=== PATIENT | male | born 1950 | race Caucasian/White ===

== ENCOUNTER 2020-06-17 18:26 | Emergency (ER) | payer MEDICARE, OTHER ==
[~2020-06-17] VITALS: Ht 172.7 cm; Wt 81.8 kg
[~2020-06-17 18:26] MED LIST: ASPI325T11 PO; ASPI81TA50 PO; ATOR20TA58 PO; B12/1TAB3 PO; HYDR-2145 PO; PANT20TA2 PO
[2020-06-17] MEDS ORDERED: OXYMETAZOLINE 0.05% NASAL SPRAY 30ML BOTTLE. NS ONE (19:00)
[2020-06-17] MEDS ORDERED: TRANEXAMIC ACID 1,000 MG/10 ML VIAL. TOP ONE (21:15)
--- NOTE | 2020-06-17 23:30 | PHYS DOC ---
Past Medical History Past Medical History: Hypertension, Unknown Past Surgical History: Tonsillectomy, Other Additional Past Surgical Histo: prostate, Deviated septum repair with turbinate resection may 2020 Smoking Status: Never Smoker Alcohol Use: Occasionally Drug Use: None General Adult EDM: Chief Complaint: NOSEBLEED HPI: HPI: Patient is a 69 year old male who presents to the ED via passenger vehicle with Nosebleed of 1 hour duration. Patient underwent outpatient surgery, deviated septum repair with turbinate removal, at [address] Martin Coronel (ENT). Patient reports nose was bleeding in PACU but was controlled with pressure. Patient was discharged from [facility] with instruction to return or go to ED if bleeding resumed. Patient reports that bleeding started again suddenly and aggressively around 1700 at which point he decided to present to ED. Patient is not on blood thinners. Patient pain is well controlled at this time. Review of Systems: Review of Systems: Constitutional: Denies fever or chills Eyes: Denies redness or eye pain HENT: Patient has obvious bright red blood draining from both nares (R>L). Patient has nasal congestion s/p recent septum surgery. Respiratory: Denies cough or shortness of breath Cardiovascular: Denies chest pain or palpitations GI: Denies abdominal pain, nausea, or vomiting : Denies dysuria or hematuria Musculoskeletal: Patient has low back and hamstring pain. Denies joint pain. Integument: Denies rash or skin lesions Neurologic: Denies headache, focal weakness or sensory changes Complete systems were reviewed and found to be within normal limits, except as documented in this note. Heart Score: C/O Chest Pain: N/A Family History: Family History: Patient has no pertinent family history. Current Medications: Current Medications Medications (Trade) Dose Ordered Sig/Brooks Start Time Stop Time Status Last Admin Dose Admin Oxymetazoline HCl (Afrin) 2 spray 1X ONCE 06/17/20 19:00 06/17/20 19:01 DC 06/17/20 20:52 2 SPRAY Tranexamic Acid (Cyklokapron) 1,000 mg 1X ONCE 06/17/20 21:15 06/17/20 21:16 DC Allergies: Allergies: Allergies Coded Allergies Type Severity Reaction Last Updated Verified No Known Drug Allergies 08/19/17 No Physical Exam: PE: Constitutional: Well developed, well nourished, no acute distress, non-toxic appearance HENT: Bright red bleeding from nares (R>L). Patient presents with packing soaked in coagulated blood. Blood was suctioned and nose was inspected. No arterial bleed was directly visualized. Patient reports surgeon placed stents bilaterally in nose during surgery. Eyes: PERRL, EOMI, conjunctiva normal, bloody discharge noted bilaterally. Neck: Normal range of motion, no tenderness, supple Lungs & Thorax: No respiratory distress, equal chest rise and fall Abdomen: Soft, no tenderness Skin: Warm, dry, no erythema, no rash Back: No tenderness, no CVA tenderness Extremities: No tenderness, ROM intact, no edema Neurologic: Alert and oriented X 3, normal motor function, normal sensory function, no focal deficits noted Psychologic: Affect normal, judgment normal Current Patient Data: Vital Signs: Vital Signs Date Time Temp Pulse Resp B/P (MAP) Pulse Ox O2 Delivery O2 Flow Rate FiO2 06/17/20 19:35 98.3 78 122/81 (95) 95 Room Air 98.3 EKG: EKG: [] Radiology/Procedures: Radiology/Procedures: [] Course & Med Decision Making: Course & Med Decision Making Patient is a 69 year old male who presents to the ED via passenger vehicle with Nosebleed of 1 hour duration. Patient underwent outpatient surgery, deviated septum repair with turbinate removal, at [address] Martin Coronel (ENT). Patient reports nose was bleeding in PACU but was controlled with pressure. Patient was discharged from [facility] with instruction to return or to seek care in ED if bleeding resumed. Patient reports that bleeding started again suddenly and aggressively around 1700 at which point he decided to present to ED. Patient is not on blood thinners. Patient pain is well controlled at this time. Blood soaked gauze was removed and clots in nares bilaterally were suctioned. Nares were inspected and bleed was identified in Right nare. Nasal epistaxis was achieved after failed trial of Afrin followed by success with administration of TXA (see procedure note). Estimated blood loss during ED visit 400 mL. Labs ordered to rule out need to administer blood products at this time. Patient had vasovagal episode of syncope in the period following successful epistaxis. Patient was observed and monitored to confirm hemodynamic stability. Patient stable for discharge with outpatient follow-up with Dr. Martin Coronel (ENT surgeon). Discussed findings and plan with patient and partner, who acknowledged understanding and agreement. Vanessa Disclaimer: Vanessa Disclaimer: This electronic medical record was generated, in whole or in part, using a voice recognition dictation system. Additional Procedures Progress Epistaxis control Verbal consent obtained. Time out performed. Hand hygiene utilized. Blood clots from bilateral nares (right greater than left) suctioned with Yankauer suction. Afrin sprays x2 followed by direct pressure for 15 minutes performed x3 rounds. Patient with continued active bleeding. Blood clots again suctioned with secondary treatment of TXA with atomizer to bilateral nares with total of 5 mL to each nare which was followed by direct pressure. Bleeding with interval improvement/resolution. Patient tolerated procedure well and without difficulty. Estimated blood loss during entire ED visit 400 mL. Departure Departure Impression: Primary Impression: Postsurgical epistaxis Disposition: 01 [place] HOME SELF CARE/HOMELESS Condition: STABLE Referrals: ROCHELLE CALDERON MD (PCP) Patient Instructions: Nosebleed, [id number] Additional Instructions: Call your ENT in AM for further evaluation. If bleeding returns, remove blood clot as much as possible, 2 sprays of Afrin to each nostril, and then hold pressure for 15 mins. If bleeding continues, repeat step I x 2 rounds as needed. If bleeding continues after 3 rounds of Afrin and holding nose for total of 45mins, then return to ED. May benefit by returning to [place] to be further evaluated by your ENT. ARIS LARSON DO Jun 17, 2020 23:30
[2020-06-17] MEDS ORDERED: IV NORMAL SALINE 1000ML BAG 1,000 ML IV ONE (23:45)
[2020-06-17 23:49] LABS: BASO % 0 % (0-3); EOS % 0 % (0-3); HEMOGLOBIN 12.4 g/dL (13.0-17.5); LYMPH # 1.4 x10^3/uL (1.0-4.8); LYMPH % 11 % (24-48); MEAN CORPUSCULAR HEMOGLOBIN 31 pg (25-35); MEAN CORPUSCULAR HGB CONC 34 g/dL (31-37); MEAN CORPUSCULAR VOLUME 89 fL (79-100); MONO # 1.1 x10^3/uL (0.0-1.1); MONO % 9 % (0-9); NEUT % 80 % (31-73); PLATELET COUNT 204 x10^3/uL (140-400); RED BLOOD COUNT 4.06 x10^6/uL (4.30-5.70); RED CELL DISTRIBUTION WIDTH 13.1 % (11.5-14.5); WHITE BLOOD COUNT 12.5 x10^3/uL (4.0-11.0)
[2020-06-18] MEDS ORDERED: HYDROcodone/APAP 5/325MG 1 TAB TABLET PO ONE (00:15)
[2020-06-18 00:37] VITALS: BP 131/77
== END 2020-06-18 00:55 | disposition home or self-care (01) ==
LOC: ER 18:26
DX: R04.0 Epistaxis (principal); M54.5 Low back pain; I10 Essential (primary) hypertension; Z90.89 Acquired absence of other organs; Z98.890 Other specified postprocedural states
CPT/HCPCS: 36415; 85025; 96360; 99285; J3490; J7030

== ENCOUNTER 2020-09-19 04:00 | Emergency (ER) | payer MEDICARE, OTHER ==
[~2020-09-19] VITALS: Ht 172.7 cm; Wt 81.8 kg
[2020-09-19 06:11] LABS: BASO # 0.1 x10^3/uL (0.0-0.2); BASO % 1 % (0-3); EOS # 0.1 x10^3/uL (0.0-0.7); EOS % 1 % (0-3); HEMATOCRIT 39.8 % (39.0-53.0); HEMOGLOBIN 13.4 g/dL (13.0-17.5); LYMPH % 11 % (24-48); MEAN CORPUSCULAR HEMOGLOBIN 28 pg (25-35); MEAN CORPUSCULAR HGB CONC 34 g/dL (31-37); MEAN CORPUSCULAR VOLUME 84 fL (79-100); MONO # 0.5 x10^3/uL (0.0-1.1); MONO % 6 % (0-9); NEUT % 81 % (31-73); PLATELET COUNT 215 x10^3/uL (140-400); RED BLOOD COUNT 4.75 x10^6/uL (4.30-5.70); RED CELL DISTRIBUTION WIDTH 13.6 % (11.5-14.5); WHITE BLOOD COUNT 8.7 x10^3/uL (4.0-11.0)
[2020-09-19 06:12] LABS: CALCIUM 9.3 mg/dL (8.5-10.1); CREATININE 1.4 mg/dL (0.7-1.3); GFR 50.1; POTASSIUM 3.4 mmol/L (3.5-5.1)
--- NOTE | 2020-09-19 06:14 | EKG ---
[facility] [address] [place] [address] Test Date: 2020-09-19 Test Time: 05:57:52 Pat Name: HAWK DAVIS Department: Room: Gender: M Inspector Quality Assurance: : 1950 Requested By: TIMI MERINO Order Number: [id number] Reading MD: Measurements Intervals [place] Rate: 66 P: 31 NV: 198 QRS: -14 QRSD: 86 T: 58 QT: 420 QTc: 442 Interpretive Statements SINUS RHYTHM LEFTWARD AXIS OTHERWISE NORMAL ECG RI6.02 No previous ECG available for comparison
[2020-09-19 06:17] LABS: ALBUMIN 4.3 g/dL (3.4-5.0); ALBUMIN/GLOBULIN RATIO 1.4 (1.0-1.7); TOTAL BILIRUBIN 0.6 mg/dL (0.2-1.0); TOTAL PROTEIN 7.4 g/dL (6.4-8.2)
[2020-09-19] MEDS ORDERED: IV NORMAL SALINE 1000ML BAG 1,000 ML IV ONE (06:30)
--- NOTE | 2020-09-19 06:33 | PHYS DOC ---
Past Medical History Past Medical History: GERD, Hypertension, Unknown Past Surgical History: Tonsillectomy, Other Additional Past Surgical Histo: prostate, Deviated septum repair with turbinate resection may 2020 Smoking Status: Never Smoker Alcohol Use: Occasionally Drug Use: None General Adult EDM: Chief Complaint: ABDOMINAL PAIN HPI: HPI: 69-year-old male presents with report of epigastric abdominal pain which she reports is dull in nature that started suddenly at approximately 0230 this morning. Patient denies radiation of pain. Denies chest pain. Denies nausea or vomiting. Denies trauma. Denies dysuria or hematuria. Patient reports history of gastritis for which he is on medication. Patient reports taking an additional antiacid without significant improvement of his symptoms. Denies shortness of breath or cough. Denies known sick contacts. Review of Systems: Review of Systems: Constitutional: Denies fever or chills Eyes: Denies redness or eye pain HENT: Denies nasal congestion or sore throat Respiratory: Denies cough or shortness of breath Cardiovascular: Denies chest pain or palpitations GI: Reports epigastric abdominal pain; denies nausea or vomiting : Denies dysuria or hematuria Musculoskeletal: Denies back pain or joint pain Integument: Denies rash or skin lesions Neurologic: Denies headache, focal weakness or sensory changes Complete systems were reviewed and found to be within normal limits, except as documented in this note. Heart Score: C/O Chest Pain: No Allergies: Allergies: Allergies Coded Allergies Type Severity Reaction Last Updated Verified No Known Drug Allergies 08/19/17 No Physical Exam: PE: Constitutional: Well developed, well nourished, no acute distress, non-toxic appearance HENT: Normocephalic, atraumatic Eyes: Conjunctiva normal, no discharge Neck: Normal range of motion, supple Lungs & Thorax: No respiratory distress, equal chest rise and fall Abdomen: Soft, epigastric tenderness, no guarding/rebound tenderness/distention Skin: Warm, dry, no erythema, no rash Back: No tenderness, no CVA tenderness Extremities: No tenderness, ROM intact, no edema Neurologic: Alert and oriented X 3, no focal deficits noted Psychologic: Affect normal, judgment normal Current Patient Data: Labs: Laboratory Tests Test 09/19/20 05:35 White Blood Count 8.7 x10^3/uL (4.0-11.0) Red Blood Count 4.75 x10^6/uL (4.30-5.70) Hemoglobin 13.4 g/dL (13.0-17.5) Hematocrit 39.8 % (39.0-53.0) Mean Corpuscular Volume 84 fL (79-100) Mean Corpuscular Hemoglobin 28 pg (25-35) Mean Corpuscular Hemoglobin Concent 34 g/dL (31-37) Red Cell Distribution Width 13.6 % (11.5-14.5) Platelet Count 215 x10^3/uL (140-400) Neutrophils (%) (Auto) 81 % (31-73) H Lymphocytes (%) (Auto) 11 % (24-48) L Monocytes (%) (Auto) 6 % (0-9) Eosinophils (%) (Auto) 1 % (0-3) Basophils (%) (Auto) 1 % (0-3) Neutrophils # (Auto) 7.0 x10^3/uL (1.8-7.7) Lymphocytes # (Auto) 1.0 x10^3/uL (1.0-4.8) Monocytes # (Auto) 0.5 x10^3/uL (0.0-1.1) Eosinophils # (Auto) 0.1 x10^3/uL (0.0-0.7) Basophils # (Auto) 0.1 x10^3/uL (0.0-0.2) Sodium Level 143 mmol/L (136-145) Potassium Level 3.4 mmol/L (3.5-5.1) L Chloride Level 103 mmol/L (98-107) Carbon Dioxide Level 29 mmol/L (21-32) Anion Gap 11 (6-14) Blood Urea Nitrogen 22 mg/dL (8-26) Creatinine 1.4 mg/dL (0.7-1.3) H Estimated GFR (Cockcroft-Gault) 50.1 BUN/Creatinine Ratio 16 (6-20) Glucose Level 101 mg/dL (70-99) H Calcium Level 9.3 mg/dL (8.5-10.1) Total Bilirubin 0.6 mg/dL (0.2-1.0) Aspartate Amino Transferase (AST) 18 U/L (15-37) Alanine Aminotransferase (ALT) 20 U/L (16-63) Alkaline Phosphatase 60 U/L (46-116) Total Protein 7.4 g/dL (6.4-8.2) Albumin 4.3 g/dL (3.4-5.0) Albumin/Globulin Ratio 1.4 (1.0-1.7) Lipase 54 U/L (73-393) L Laboratory Tests 09/19/20 05:35 Laboratory Tests 09/19/20 05:35 Vital Signs: Vital Signs Date Time Temp Pulse Resp B/P (MAP) Pulse Ox O2 Delivery O2 Flow Rate FiO2 09/19/20 04:04 97.6 57 20 192/93 (126) 96 Room Air 97.6 EKG: EKG: @0557 NSR at 66bpm, NO ST elevation, QRS 86ms, QT/QTc 420/442ms Radiology/Procedures: Radiology/Procedures: PROCEDURE: CT ABD PELV W/ IV CONTRST ONLY EXAMINATION: CT abdomen and pelvis with IV contrast. INDICATION:69 years, Male, abdominal pain. TECHNIQUE: Axial CT images of the abdomen and pelvis were obtained. Coronal and sagittal reformatted performed. COMPARISON: None. Exposure: One or more of the following individualized dose reduction techniques were utilized for this examination: 1. Automated exposure control 2. Adjustment of the mA and/or kV according to patient size 3. Use of iterative reconstruction technique. FINDINGS: LOWER CHEST: 2 mm fissure based nodule in the right middle lobe. Dependent subsegmental atelectasis in bibasilar lungs. ABDOMEN/PELVIS: Normal morphology and size of the liver with homogeneous enhancement. Subc entimeter hypodensities in both hepatic lobes, too small to characterize. Gallbladder hydrops without wall thickening or pericholecystic fat stranding. Tiny calcified cholelithiasis. No biliary ductal dilation. Normal spleen. Mildly atrophic pancreatic parenchyma without ductal dilation. No adrenal nodule. No hydronephrosis or nephrolithiasis in either kidney. Nonspecific bilateral perinephric fat stranding. Distal esophageal wall thickening, may reflect reflux esophagitis. Small hiatal hernia. Stomach is decompressed which limits evaluation. Uncomplicated D2 duodenal diverticulum. No bowel obstruction. Colonic diverticulosis without diverticulitis. Appendix is not seen with certainty. Focal narrowing at the celiac trunk origin, findings can be seen in medial arcuate ligament syndrome. Normal caliber abdominal aorta, demonstrates mild atherosclerotic calcifications. Mesenteric arteries and portal vein are patent. No lymphadenopathy in the abdomen or pelvis by size criteria. No ascites or pneumoperitoneum. Unremarkable urinary bladder and prostate. No suspicious pelvic masses. MUSCULOSKELETAL: Bilateral L5 pars defect with grade 1 anterolisthesis of L5 over S1 and severe degenerative changes. No acute osseous process or suspicious lesion. Small fat- containing umbilical and right inguinal hernias. IMPRESSION: 1. No acute abnormality in the abdomen or pelvis. 2. Gallbladder hydrops with tiny cholelithiasis. No CT evidence of acute cholecystitis. 3. Colonic diverticulosis without diverticulitis. 4. Other chronic/incidental findings, as described above. Electronically signed by: Ariana Mcintosh MD (09/19/2020 7:37 AM) [facility] Course & Med Decision Making: Course & Med Decision Making Pertinent Labs and Imaging studies reviewed. (See chart for details) Patient presents with sudden epigastric abdominal pain upon waking this morning at 0230. Denies chest pain. Denies shortness of air or cough. Patient reports some improvement upon arrival to the ER. Abdomen nonperitoneal. Screening EKG negative. Labs obtained and posted to chart. CT abdomen/pelvis with signs of gallbladder hydrops with cholelithiasis. No acute signs of cholecystitis. Ultrasound also obtained with normal size of common bile duct again with gallbladder hydrops with cholelithiasis and no other acute signs of cholecystitis. Patient stable for discharge with outpatient follow-up with PCP/general surgeon. General surgery referral provided. Discussed findings and plan with patient, who acknowledges understanding and agreement. Vanessa Disclaimer: Vanessa Disclaimer: This electronic medical record was generated, in whole or in part, using a voice recognition dictation system. Departure Departure Impression: Primary Impression: Gallbladder hydrops Additional Impression: Biliary colic Disposition: HOME / SELF CARE / HOMELESS Condition: STABLE Referrals: ROCHELLE CALDERON MD (PCP) JORDON INGRAM MD Patient Instructions: Cholelithiasis, [id number], Fat and Cholesterol Control Diet, [id number] Additional Instructions: Please call and make an appointment to follow with a general surgeon regarding your gallbladder. Maintain a "low fat" diet. Scripts Hydrocodone Bit/Acetaminophen (HYDROCODONE-APAP 5-325 ) 1 Tab Tablet 0.5-1 TAB PO PRN Q6HRS PRN for PAIN, #10 TAB 0 Refills Prov: ARIS LARSON DO 09/19/20 Ondansetron (ONDANSETRON ODT) 4 Mg Tab.rapdis 1 TAB PO PRN Q6-8HRS PRN for NAUSEA, #16 TAB Prov: ARIS LARSON DO 09/19/20 ARIS LARSON DO Sep 19, 2020 06:33
[2020-09-19] MEDS ORDERED: IOHEXOL 300 MG/ML 100ML VIAL. IV ONE (07:00)
[2020-09-19] MEDS ORDERED: CONTRAST GIVEN. MC PRN (07:00)
--- NOTE | 2020-09-19 07:39 | RAD ---
EXAMINATION: CT abdomen and pelvis with IV contrast. INDICATION:69 years, Male, abdominal pain. TECHNIQUE: Axial CT images of the abdomen and pelvis were obtained. Coronal and sagittal reformatted performed. COMPARISON: None. Exposure: One or more of the following individualized dose reduction techniques were utilized for thi s examination: 1. Automated exposure control 2. Adjustment of the mA and/or kV according to patient size 3. Use of iterative reconstruction technique. FINDINGS: LOWER CHEST: 2 mm fissure based nodule in the right middle lobe. Dependent subsegmental atelectasis in bibasilar l ungs. ABDOMEN/PELVIS: Normal morphology and size of the liver with homogeneous enhancement. Subcentimeter hypodensities in both hepatic lobes, too small to characterize. Gallbladder hydrops without wall thickening or pericho lecystic fat stranding. Tiny calcified cholelithiasis. No biliary ductal dilation. Normal spleen. Mil dly atrophic pancreatic parenchyma without ductal dilation. No adrenal nodule. No hydronephrosis or n ephrolithiasis in either kidney. Nonspecific bilateral perinephric fat stranding. Distal esophageal wall thickening, may reflect reflux esophagitis. Small hiatal hernia. Stomach is de compressed which limits evaluation. Uncomplicated D2 duodenal diverticulum. No bowel obstruction. Col onic diverticulosis without diverticulitis. Appendix is not seen with certainty. Focal narrowing at t he celiac trunk origin, findings can be seen in medial arcuate ligament syndrome. Normal caliber abdo alexis aorta, demonstrates mild atherosclerotic calcifications. Mesenteric arteries and portal vein ar e patent. No lymphadenopathy in the abdomen or pelvis by size criteria. No ascites or pneumoperitoneu m. Unremarkable urinary bladder and prostate. No suspicious pelvic masses. MUSCULOSKELETAL: Bilateral L5 pars defect with grade 1 anterolisthesis of L5 over S1 and severe degenerative changes. No acute osseous process or suspicious lesion. Small fat-containing umbilical and right inguinal keira ias. IMPRESSION: 1. No acute abnormality in the abdomen or pelvis. 2. Gallbladder hydrops with tiny cholelithiasis. No CT evidence of acute cholecystitis. 3. Colonic diverticulosis without diverticulitis. 4. Other chronic/incidental findings, as described above. Electronically signed by: Ariana Mcintosh MD (09/19/2020 7:37 AM) [facility]
[2020-09-19 07:53] LABS: BILIRUBIN,URINE NEGATIVE (NEG); CLARITY,URINE CLEAR; COLOR,URINE YELLOW; NITRITE,URINE NEGATIVE (NEG); PH,URINE 5.5 (<5.0-8.0); PROTEIN,URINE NEGATIVE (NEG-TRACE); UROBILINOGEN,URINE 0.2 mg/dL (0.2 mg/dL)
[2020-09-19] MEDS ORDERED: fentaNYL PF VIAL 100 MCG/2 ML VIAL IV ONE (08:30)
[2020-09-19 08:33] LABS: BACTERIA,URINE 0 /HPF (0-FEW); RBC,URINE 0 /HPF (0-2); WBC,URINE 0 /HPF (0-4)
--- NOTE | 2020-09-19 08:45 | RAD ---
EXAMINATION: US ABDOMEN LIMITED INDICATION: 69 years, Male, upper abdominal pain. COMPARISON: Same day CT abdomen and pelvis TECHNIQUE: Grayscale, color Doppler and limited spectral Doppler images of the right upper quadrant w ere obtained. FINDINGS: LIVER: SIZE (LENGTH): 3.9 cm. ECHOGENICITY: Normal PARENCHYMA: Mild heterogeneous echotexture. No discrete focal lesion. INTRAHEPATIC BILE DUCTS: Nondilated. PORTAL VEIN: Patent with normal hepatopedal flow. GALLBLADDER: GALLBLADDER WALL THICKNESS: 2 mm MORPHOLOGY: Gallbladder hydrops. No wall hyperemia or pericholecystic free fluid. LUMEN: Normal. Positive Calix's sign COMMON BILE DUCT DIAMETER: 4 mm RIGHT KIDNEY: MEASURES: 9.1 cm in length MORPHOLOGY/PARENCHYMA: Normal corticomedullary differentiation with no shadowing calculus or discrete masses. COLLECTING SYSTEM: No hydronephrosis. Pancreas, IVC and abdominal aorta are obscured by overlying bowel gas. OTHER: RETROPERITONEUM, INFERIOR VENA CAVA: Normal caliber. AORTA: Normal caliber measures up to Field 2 cm FLUID:No free fluid. IMPRESSION: Gallbladder hydrops without other sonographic evidence of acute cholecystitis. Previously seen tiny c alcified cholelithiasis is appreciated on the current exam. Positive Calix's sign is nonspecific. Co nsider HIDA scan, as warranted. Electronically signed by: Ariana Mcintosh MD (09/19/2020 8:42 AM) [facility]
[2020-09-19 08:50] VITALS: BP 164/82
[2020-09-19] MEDS ORDERED: ONDA4TAB12 PO (09:18)
[2020-09-19] MEDS ORDERED: HYDR-2761 PO (09:18)
[2020-09-24] MEDS ORDERED: HYDR12.58 PO (21:19)
[2020-09-24] MEDS ORDERED: ASPI-630 PO (21:19)
[2020-09-24] MEDS ORDERED: MELA5TAB20 PO (21:20)
[2020-09-24] MEDS ORDERED: VITA25006 PO (21:20)
== END 2020-09-19 09:37 | disposition home or self-care (01) ==
LOC: ER 04:00
DX: K82.1 Hydrops of gallbladder (principal); K80.50 Calculus of bile duct without cholangitis or cholecystitis without obstruction; K21.9 Gastro-esophageal reflux disease without esophagitis; I10 Essential (primary) hypertension
CPT/HCPCS: 36415; 74177; 76705; 80053; 81001; 82553; 83690; 83735; 84484; 85025; 93005; 96361; 96374; 99285; J3010; J7030; Q9967